=== PATIENT | male | born 1995 | race Two or more races ===

== ENCOUNTER 2019-05-23 00:54 | Emergency (ER) | payer SELFPAY ==
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
== END 2019-05-23 01:15 ==
LOC: MW.ED 00:54
DX: Z02.89 Encounter for other administrative examinations (principal)
CPT/HCPCS: 82962; 99282; 99283